=== PATIENT | male | born 1985 | race African-American/Black ===

== ENCOUNTER 2025-01-21 17:53 | Emergency (ER) | payer MEDICAID ==
[~2025-01-21] VITALS: Ht 177.8 cm; Wt 91.0 kg
[2025-01-21 17:56] VITALS: O2SAT 100
[2025-01-21] MEDS: LORAZEPAM 1MG TABLET PO ONE ×2 (18:29→21:17)
[2025-01-21 18:36] LABS: BASOPHILS % 0.2 % (0.0-2.0); EOSINOPHILS % 0.7 % (0.0-5.0); HEMATOCRIT. 38.8 % (42.0-52.0); HEMOGLOBIN. 13.3 g/dL (14.0-18.0); LYMPHOCYTES % 12.1 % (20.0-50.0); MEAN PLATELET VOLUME 7.9 fl (7.4-10.4); MONOCYTES % 7.3 % (2.0-8.0); NEUTROPHILS % 79.7 % (40.0-76.0); PLATELET 337 x1000/uL (130-400); RED BLOOD CELL COUNT 4.42 mill/uL (4.7-6.1); RED CELL DISTRIBUTION WIDTH 13.4 % (11.6-14.6)
[2025-01-21 18:47] LABS: CREATININE 1.3 mg/dL (0.6-1.3)
[2025-01-21 18:48] LABS: ETHANOL BLOOD < 10 mg/dL (<10); UREA NITROGEN BLOOD 19 mg/dL (9-23)
[2025-01-21 20:06] LABS: CLARITY URINE CLEAR (CLEAR); COLOR URINE YELLOW (YELLOW); GLUCOSE URINE NEGATIVE (NEGATIVE); KETONES URINE NEGATIVE (NEGATIVE); LEUKOCYTE ESTERASE URINE NEGATIVE (NEGATIVE); NITRITE URINE NEGATIVE (NEGATIVE); OCCULT BLOOD URINE NEGATIVE (NEGATIVE); PH URINE 5.5 (4.5-8.0); PROTEIN URINE NEGATIVE (NEGATIVE); SPECIFIC GRAVITY URINE 1.024 (1.005-1.030); UROBILINOGEN URINE 0.2 E.U./dL (0.2-1.0)
[2025-01-21 20:14] LABS: *AMPHETAMINES SCREEN URINE PRESUMPTIVE POSITIVE (NEGATIVE); *BARBITURATES SCREEN URINE NEGATIVE (NEGATIVE); *BENZODIAZEPINES SCREEN URINE NEGATIVE (NEGATIVE); *COCAINE SCREEN URINE NEGATIVE (NEGATIVE)
[2025-01-21 20:15] LABS: CANNABINOID URINE SCREEN NEGATIVE (NEGATIVE); ECSTASY MDMA SCREEN URINE CONF.TEST INDICATED (NEGATIVE); METHADONE URINE SCREEN NEGATIVE (NEGATIVE); OPIATES URINE SCREEN NEGATIVE (NEGATIVE); PHENCYCLIDINE URINE SCREEN NEGATIVE (NEGATIVE)
[2025-01-21] MEDS ORDERED: DIPHENHYDRAMINE 50MG CAPSULE PO ONE (21:15)
[2025-01-21] MEDS: DIPHENHYDRAMINE 25MG CAPSULE PO NR (21:17)
[2025-01-21] MEDS: OLANZAPINE 5MG TABLET ODT PO ONE (21:17)
[2025-01-22 15:45] VITALS: BP 105/66; PULSE 84; RESP 16; TEMP 36.7; O2SAT 99
== END 2025-01-22 16:14 | disposition short-term general hospital (02) ==
LOC: ER 17:53
DX: R45.851 Suicidal ideations (principal); F19.10 Other psychoactive substance abuse, uncomplicated; F41.9 Anxiety disorder, unspecified; R03.0 Elevated blood-pressure reading, without diagnosis of hypertension; R00.2 Palpitations; Z79.899 Other long term (current) drug therapy; Z59.01 Sheltered homelessness; Z20.822 Contact with and (suspected) exposure to COVID-19; Z88.0 Allergy status to penicillin
CPT/HCPCS: 80305; 80048; 81003; 80307; 80329; 80320; 85025; 36415; 99285; 87426; Q0163; G0480